=== PATIENT | female | born 1970 | race Two or more races ===

== ENCOUNTER 2023-07-01 06:30 | Day surgery (SDC) | payer OTHER ==
[~2023-07-01] VITALS: Ht 165.1 cm; Wt 66.4 kg
[~2023-07-01 06:30] MED LIST: FISH OIL 1,001000 MG PO; GLUCOSAMINE1000 MG PO; JOINT HEALTH T1 EACH PO; MACULAR HEALTH1 EACH PO; MULTIPLE VITAM1 EAC2 PO
[2023-07-01 07:01] VITALS: BP 116/70
[2023-07-01] MEDS ORDERED: IBUPROFEN200 M1 PO (07:04)
--- NOTE | 2023-07-01 07:27 | NUR ---
CONNECTED BRIEFLY WITH IN HALLWAY. DENIED NEEDS. PRAYED FOR SUCCESSFUL PROCEDURE AND CLEAR RESULTS ON BEHALF OF PT.
[2023-07-01 08:31] VITALS: BP 101/70
--- NOTE | 2023-07-01 08:33 | NUR ---
07/01/23 0833 Aranza Van 0802 PT ARRIVED IN PACU AWAKE WITH NO C/O'S. ABD SOFT. 0815 AT BEDSIDE. ALL QUESTIONS ANSWERED. 0825 SITTING UP IN BED SIPPING ON WATER AND VISITING WITH STAFF. 0830 DC INSTRUCTIONS GIVEN.
--- NOTE | 2023-07-01 20:08 | OR ---
[facility] [address] [place], [place] [address] Signed DATE OF OPERATION: 07/01/2023 SURGEON: Mayra Ordaz MD PREOPERATIVE DIAGNOSIS: Colon screening. POSTOPERATIVE DIAGNOSIS: Diminutive polyp right colon. PROCEDURE: Total colonoscopy to cecum with cold morcellation polypectomy x1. ANESTHESIA: Intravenous sedation; fentanyl 150 mcg and Versed 5 mg. INDICATION: This 52-year-old white woman is a patient of MARCIA Dover. She is here for screening colonoscopy. She has no symptoms of bleeding, diarrhea or constipation and no family history of colon cancer. She understands the risk of bleeding, infection, and perforation related to colonoscopy and wished to proceed. FINDINGS: The prep was excellent. Complete colonoscopy was undertaken to the cecum without question. Full intubation of the cecum was accomplished. There was a diminutive polyp of the right colon, which was excised. Remaining colon was normal. DESCRIPTION OF PROCEDURE: The patient was brought to the endoscopy suite and placed in lateral decubitus position, given intravenous sedation to the point of slurred speech and nystagmus with full cardiopulmonary monitoring. Digital rectal examination was normal. An Olympus video colonoscope was passed in the rectum and manipulated throughout the colon noting a very diminutive polyp of the right colon, which was excised with cold morcellation technique. The scope was ultimately passed to the cecum. Full intubation of the cecum was noted with a classic appearance of the cecum and ileocecal valve itself. The scope was then withdrawn from that point and examination throughout showed no sign of abnormality including no diverticula or colitis. Retroflexed view of the rectum was normal. Scope was removed. The patient was taken to the recovery room in good condition. Electronically Signed By: MAYRA ORDAZ MD 07/01/232007 PATIENT NAME: HOMERO GRESHAM OPERATIVE REPORT DATE OF : 74 REPORT #: [id number] PHYSICIAN: MAYRA ORDAZ MD PCP: CLAUDIA WIGGINS PA-C REPORT IS CONFIDENTIAL AND NOT TO BE RELEASED WITHOUT AUTHORIZATION [facility] [address] [place] [id number] Signed CONCLUDING DIAGNOSIS: Diminutive polyp of right colon excised. PLAN: Recommend repeat colonoscopy in 5-7 years due to the finding of the small polyp, sooner if clinically indicated. She will return to the ongoing care of MARCIA Dover. MD HORTENSIA Hays/MODL /[id number] cc: Claudia Wiggins PA-C Copies: CLAUDIA WIGGINS PA-C ~ Electronically Signed By: MAYRA ORDAZ MD 07/01/232007 PATIENT NAME: HOMERO GRESHAM OPERATIVE REPORT DATE OF : 74 REPORT #: [id number] PHYSICIAN: MAYRA ORDAZ MD PCP: CLAUDIA WIGGINS PA-C REPORT IS CONFIDENTIAL AND NOT TO BE RELEASED WITHOUT AUTHORIZATION
--- NOTE | 2023-07-02 15:36 | PATH ---
[facility] [address] [place] [address] Signed SPECIMEN(S): A ASCENDING/RIGHT COLON POLYP SPECIMEN SOURCE: A. ASCENDING/RIGHT COLON POLYP CLINICAL HISTORY: Colon screening FINAL PATHOLOGIC DIAGNOSIS: Ascending/right colon polyp: - Polypoid fragment of benign colonic mucosa, negative for pathologic inflammation. JVR:florin MICROSCOPIC EXAMINATION: Histologic sections of all submitted blocks are examined by light microscopy. These findings, together with the gross examination, support the pathologic diagnosis. GROSS DESCRIPTION: The specimen, labeled and designated "Anabel Hitchcock, ascending/right colon polypectomy," is received in formalin and consists of 1 jones soft tissue fragment measuring 0.2 x 0.4 cm and is submitted entirely in (A1). MMA (under the direct supervision of a pathologist) The Gross Description was prepared using a voice recognition system. The report was reviewed for accuracy; however, sound-alike word errors, addition and/or deletions may occur. If there is any question about this report, please contact Client Services. PERFORMING LABORATORY: Technical component was performed by [facility], [address] [place] [id number] (CLIA# [id number]). Professional interpretation was performed by [facility], [address] [place] [id number] (CLIA#: [id number]). Diagnostician: Curtis Monique MD Pathologist Electronically Signed 07/02/2023 PATIENT NAME: HOMERO HITCHCOCK PATHOLOGY DATE OF : 74 REPORT #: [id number] PHYSICIAN: SUMA ANAYA PCP: DEB CULVER PA-C REPORT IS CONFIDENTIAL AND NOT TO BE RELEASED WITHOUT AUTHORIZATION [address] [address] Signed Copies: ~ PATIENT NAME: HOMERO HITCHCOCK PATHOLOGY DATE OF : 74 REPORT #: [id number] PHYSICIAN: SUMA ANAYA PCP: DEB CULVER PA-C REPORT IS CONFIDENTIAL AND NOT TO BE RELEASED WITHOUT AUTHORIZATION
== END 2023-07-01 09:00 | disposition home or self-care (01) ==
LOC: OPS 06:30 → DS 06:30 → OPS 07:30 → DS 14:00 → OPS 14:00
PROVIDERS: ATTEND Surgery
PROC: 0DBF8ZX Excision of Right Large Intestine, Via Natural or Artificial Opening Endoscopic, Diagnostic (ICD-10-PCS; principal; 2023-07-01 07:30)
DX: Z12.11 Encounter for screening for malignant neoplasm of colon (principal); K63.5 Polyp of colon; Z88.0 Allergy status to penicillin; Z79.899 Other long term (current) drug therapy
CPT/HCPCS: 84703; 99153; G0500; J2250; J3010; J7121